=== PATIENT | female | born 1965 | race Caucasian/White ===

== ENCOUNTER 2021-05-30 08:00 | Outpatient (RCR) | payer BC, SELFPAY ==
--- NOTE | 2021-05-02 14:32 | PTOPEVAL ---
PHYSICAL THERAPY EVALUATION AND PLAN OF CARE Thank you for referring Selene Hernandez to [facility] [place] The patient is scheduled to be seen for therapy? 2x/week for 4 weeks. Please review, sign, date and return this plan of care MIKE. I agree with and certify that the following plan of care is medically necessary. Referring Physician Date Evaluation Outpatient Past Medical History Neurological History Hx Migraine Yes Cardiovascular History Hx Cardiac Disorders No Significant History Respiratory History Hx Respiratory Disorders No Significant History Gastrointestinal History Hx Gastroesophageal Reflux Disease Yes Genitourinary History Hx Genitourinary Disorders No Significant History Musculoskeletal History Hx Arthritis Yes: OA hillary knee Hx Back Pain Yes Hx Joint Replacement Yes: left knee Hx Spinal Surgery Yes: s/p PSF L4-5 02/03/19 Endocrine History Hx Diabetes Yes: diet controled Hx Hypothyroidism Yes HEENT History Hx HEENT Disorders No Significant History Integumentary History Hx Skin Disorders No Significant History Psychosocial History Hx Anxiety Yes Hx Bipolar Disorder Yes Hx Depression Yes Pain History Has Past Pain Affected Your Daily Life Yes: knees and back Diagnosis low back pain following spinal fusion Onset 5months ago Subjective Information Fusion was performed in Text:As Reported By Patient/ 2018 and everything was great Family for 2 years. Today symptomsa returning -she has bilateral hip pain and her left leg feels weak. This started about 5 months ago. No event occurred to cause the pain or the weakness. She did have two recent falls with the possibility that they were because of the weakness she has been feeling. No new numbness or tingling (both bottoms of her feet are numb from 2 years ago, but nothing new noted). The bilateral hip pain is there during the day but seems worse at night and the left is worse than the right. Self Report Pain Assessment Bilateral Hip(s) Reported Pain Level 4 Pain Description Dull Pain Frequency Chronic,Intermittent Lowest Pain Intensit
--- NOTE | 2021-05-30 08:33 | PTOPEVAL ---
PHYSICAL THERAPY DISCHARGE NOTE Thank you for referring Selene Hernandez to [facility] [place].? Please review, sign, date and return this plan of care MIKE. I agree with and certify that the following plan of care is medically necessary. Referring Physician Date Diagnosis low back pain following spinal fusion Onset 5months ago Subjective Information States that she still has the Query Text:As Reported By Patient/ pain in the hips and it is Family about the same as when we started. States that the back pain will come and go and right now there is a particular bout that starts out ok in the morning but by the evening it is almost unbearable. States that her exercises are going ok at home . Has been consistent with exercises at home except for the last two days because of the pain. She did do cat cow and child's pose and a heating pad to assist with pain the last two days. Self Report Pain Assessment Bilateral Hip(s) Reported Pain Level 6 Pain Description Dull Pain Frequency Chronic,Intermittent Greatest Pain Intensity 8 Other Pain Aggravating Factors cannot identify what makes it worse4 Pain Score Pain Score 6: Self Report Interventions Used Interventions Used By Clinicians Exercise Lower Extremity Muscle Strength Testing Hip Strength Bilateral Hip Flexion Strength 3+ Fair + Hip Extension Strength 3 Fair Hip Abduction Strength 3 Fair Knee Strength Bilateral Knee Flexion Strength 4- Good - Knee Extension Strength 4- Good - Ankle Strength Bilateral Ankle Dorsiflexion Strength 5 Normal Balance Assessment 5 Time Sit to Stand Time in Seconds 20.15 General Exercise General Exercises Exercise Type Active,Stabilization, Stretching Exercise Description reviewed HEP as issued per Query Text:Record Sets, Reps, chart copies; replaced supine Resistance, and Position marches for resisted standing marches discussed with Selene and educated on using home exercise program regularly and consistentl
== END 2021-05-31 08:46 | disposition home or self-care (01) ==
LOC: ANHPT 08:00
PROVIDERS: PCP Family Medicine
DX: M54.50 Low back pain, unspecified (principal); Z98.1 Arthrodesis status
CPT/HCPCS: 97110; 97140; 97162

== ENCOUNTER 2021-12-22 18:06 | Emergency (ER) | payer BC, SELFPAY ==
[2021-12-22 18:14] VITALS: BP 155/83; PULSE 79; RESP 16; TEMP 36.7; O2SAT 99
[2021-12-22 18:16] VITALS: BP 155/83; PULSE 79; RESP 16; TEMP 36.7; O2SAT 99
--- NOTE | 2021-12-22 18:33 | ED.URI ---
HPI - URI/Sore Throat General Chief Complaint: Upper Respiratory Infection Stated Complaint: sore throat Time Seen by Provider: 12/22/21 18:33 Source: patient, RN notes reviewed and old records reviewed Mode of arrival: ambulatory Limitations: no limitations History of Present Illness HPI Narrative: [id number] female who presents to [facility] with complaints of sore throat and ear pain which started yesterday morning when she awoke. Patient denies any known fevers chills or sweats,denies any cough or nasal congestion or drainage. Patient rates her throat pain as 7.10, has jevon Briseno for her pain. Patient has had COVID vaccinations and booster and also flu shot. 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 MD elicited complaint: sore throat and other (ear pain) Onset (ago): day(s) (yesterday morning) Pain scale (0-10): 7 Treatments prior to arrival: other (aleve) Related Data Home Medications Medication Instructions Recorded Confirmed acyclovir 400 mg tablet 400 mg PO DAILY 12/22/21 12/22/21 atomoxetine 40 mg capsule 40 mg PO DAILY 12/22/21 12/22/21 buspirone 10 mg tablet 10 mg PO DAILY 12/22/21 12/22/21 calcium carb-ergocalciferol (vit 1 tablet PO DAILY 12/22/21 12/22/21 D2) 600 mg calcium-200 unit tablet cyclobenzaprine 10 mg tablet 10 mg PO DAILY 12/22/21 12/22/21 lamotrigine 150 mg tablet 150 mg PO DAILY 12/22/21 12/22/21 levothyroxine 50 mcg tablet 50 mcg PO DAILY 12/22/21 12/22/21 melatonin 5 mg tablet 5 mg PO HS 12/22/21 12/22/21 meloxicam 15 mg tablet 15 mg PO DAILY 12/22/21 12/22/21 omeprazole 20 mg tablet,delayed 20 mg PO DAILY 12/22/21 12/22/21 release rizatriptan 10 mg tablet 10 mg PO DAILY 12/22/21 12/22/21 rosuvastatin 10 mg tablet 10 mg PO DAILY 12/22/21 12/22/21 trazodone 100 mg tablet 100 mg PO DAILY 12/22/21 12/22/21 Allergies Allergy/AdvReac Type Severity Reaction Status Date / Time paroxetine [From Paxil] AdvReac Mild Unknown Verified 12/22/21 18:29 Review of Systems Review of Systems: CONSTITUTIONAL: Denies fever, chills, or sweats. EYES: Denies visual changes, redness, or discharge. ENT: Denies rhinorrhea, congestion, positive forsore throat, bilateral otalgia. CARDIOVASCULAR: Denies chest pain, palpitations, or edema. RESPIRATORY: Denies cough or dyspnea. GASTROINTESTINAL: Denies abdominal pain, nausea, vomiting, or diarrhea. GENITOURINARY: Denies dysuria or hematuria. SKIN: Denies rash or itching. MUSCULOSKELETAL: chronic back pain, knee joints pain, or myalgia. NEUROLOGIC: Denies headache, numbness, or weakness. PSYCHIATRIC: positive for anxiety or depression. All systems reviewed & are unremarkable except as noted in HPI and below PMFSH Past Medical History Medical History (Updated 12/24/21 @ 10:24 by Yazmin Viramontes NP) Anxiety and depression Asthma Bipolar 1 disorder Diabetes Elevated cholesterol GERD (gastroesophageal reflux disease) Hypertension Hypothyroid Surgical History Surgical History (Updated 12/24/21 @ 10:28 by Yazmin Viramontes NP) History of endometrial ablation History of left knee replacement Hx of spinal surgery Family History Family History (Updated 12/24/21 @ 10:31 by Yazmin Viramontes NP) Father Hypertension Musculoskeletal problem Sibling Musculoskeletal problem Other Psychiatric problem Social History Social History (Updated 12/24/21 @ 10:27 by Yazmin Viramontes NP) Smoking status: Never smoker Substance use type: does not use Living arrangements: with family Gender identity (if verbalized by the patient): Female Comments At time of signature, agree with nursing past medical, surgical, social and family history. There is no relevant family history pertinent to the presenting complaint Exam Narrative: GENERAL: Well-appearing, well-nourished, obese and in no acute distress. HEAD: Normocephalic, atraumatic. EYES: PERRLA and EOMI. ENT: Nares clear, no rhinorrhea or epistaxis. Mucous membranes m
== END 2021-12-22 18:54 | disposition home or self-care (01) ==
PROVIDERS: Emergency Provider Registered Nurse
DX: J03.90 Acute tonsillitis, unspecified (principal); H92.03 Otalgia, bilateral; F31.9 Bipolar disorder, unspecified; E11.9 Type 2 diabetes mellitus without complications; K21.9 Gastro-esophageal reflux disease without esophagitis; E03.9 Hypothyroidism, unspecified; I10 Essential (primary) hypertension; Z96.652 Presence of left artificial knee joint
CPT/HCPCS: 87081; 99213; G0463

== ENCOUNTER 2022-10-10 13:15 | Outpatient (RCR) | payer BC, SELFPAY ==
--- NOTE | 2022-10-03 09:03 | PTOPEVAL1 ---
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, it is hard to do and have pain; when take them out, have to have helper go with them, she cannot lift at home, sometimes need help with lifting and taking things upstairs---due to legs weak; do not do any exercises for legs or back; have had PT in the past, not able to recall anything about it; Reported Pain Level Pain Score Self Report back pain Additional Pain Score Comments pain range in the past week 4-9 /10; tight, dull pain; legs feel weak and hurt after walking on incline and on stairs; hips sore and hurt- when lie down increase pain: lifting, activity, end of day, bending, when first get up in AM decrease pain: sit, rest, stretch back by leaning forward with sitting--nothing really helps much decreased sensation and feels funny from R and L mid nicolas to feet- constant Assessment PT Clinical Summary Viktoria has the diagnosis of back pain. She reports weakness of her legs, with decreased ability with home tasks, lifting and stairs. Recently had 1 fall due to loss of balance. Self assessment Oswestry score of 54% limitation in activity level. Her history includes lumbar fusion in 2019 and decreased sensation in both lower legs--mid nicolas to feet. With the evaluation: she has decreased R and L LE and trunk strength; 2 minute walking test distance of 425'; 5 reps sit/stand time of 29 seconds; with testing motions--increase back pain with standing trunk flexion, supine trunk rotation R/L and bridging. Skilled PT services are indicated for modalities to decrease pain; therapeutic exercises and activities to increase strength and mobility skills, wi
--- NOTE | 2022-10-11 13:21 | PTOPDC ---
Assessment and note entered by Renay Claudio, PT Evaluation Information Reported Pain Level Discharge--patient NOT present Assessment PT Clinical Summary Selene has received 2 PT sessions. She then called and canceled her therapy due to insurance issues. The goals were not assessed. Discharge per pt request. Plan of Care PT Services Indicated No
== END 2022-10-11 14:51 | disposition home or self-care (01) ==
LOC: ANHPT 13:15
PROVIDERS: PCP Physician Assistant; Visit Provider Physician Assistant
DX: Z98.1 Arthrodesis status (principal)
CPT/HCPCS: 97110; 97161

== ENCOUNTER 2023-06-08 09:25 | Emergency (ER) | payer BC, SELFPAY ==
--- NOTE | ~2023-06-08 | XR_ITS ---
XR finger 2nd RT min 2V 06/08/2023 09:44 INDICATION: Right second finger pain PROCEDURE: 3 views right second finger COMPARISON: No prior studies for comparison. FINDINGS: Fracture, dislocation or subluxation is not identified. There is polyarticular osteoarthrit is. There is mild soft tissue swelling overlying the distal phalanx. No foreign bodies are identifie d. IMPRESSION: 1: NO ACUTE BONE OR JOINT ABNORMALITY IDENTIFIED. Reviewed, dictated and finalized at location [facility]
--- NOTE | 2023-06-08 09:26 | ED.UPPEXIN ---
HPI - Extremity Injury (Upper) General Chief Complaint: Extremity Injury, Upper Stated Complaint: right finger injury Time Seen by Provider: 06/08/23 09:26 Source: patient Mode of arrival: ambulatory Limitations: no limitations History of Present Illness HPI narrative: Patient is a 58-year-old female who presents with right thumb pain after slamming in car door yesterday. Reports there is lot of pressure under thumb nail. Denies any numbness, tingling to thumb. Denies any open wounds. Related Data Home Medications Medication Instructions Recorded Confirmed acyclovir 400 mg tablet 400 mg PO DAILY 12/22/21 06/08/23 atomoxetine 40 mg capsule 40 mg PO DAILY 12/22/21 06/08/23 buspirone 10 mg tablet 10 mg PO DAILY 12/22/21 06/08/23 calcium carb-ergocalciferol (vit 1 tablet PO DAILY 12/22/21 06/08/23 D2) 600 mg calcium-200 unit tablet cyclobenzaprine 10 mg tablet 10 mg PO DAILY 12/22/21 06/08/23 lamotrigine 150 mg tablet 150 mg PO DAILY 12/22/21 06/08/23 levothyroxine 50 mcg tablet 50 mcg PO DAILY 12/22/21 06/08/23 melatonin 5 mg tablet 5 mg PO HS 12/22/21 06/08/23 meloxicam 15 mg tablet 15 mg PO DAILY 12/22/21 06/08/23 omeprazole 20 mg tablet,delayed 20 mg PO DAILY 12/22/21 06/08/23 release rizatriptan 10 mg tablet 10 mg PO DAILY 12/22/21 06/08/23 rosuvastatin 10 mg tablet 10 mg PO DAILY 12/22/21 06/08/23 trazodone 100 mg tablet 100 mg PO DAILY 12/22/21 06/08/23 hydroxyzine HCl 25 mg tablet 25 mg PO DAILY 06/08/23 06/08/23 topiramate 50 mg tablet 50 mg PO BID 06/08/23 06/08/23 Allergies Allergy/AdvReac Type Severity Reaction Status Date / Time paroxetine [From Paxil] AdvReac Mild Unknown Verified 06/08/23 09:36 Review of Systems Review of Systems: All systems reviewed & are unremarkable except as noted in HPI and below Constitutional: Constitutional: Denies body ache(s), Denies chills, Denies fatigue, Denies fever(s), Denies headache(s), Denies malaise and Denies weakness Eyes: Eyes: Denies blurry vision, Denies irritation and Denies loss of vision ENT: Denies otalgia, Denies headache(s), Denies nasal discharge, Denies sinus pain and Denies sore throat Cardiovascular: Cardiovascular: Denies chest pain, Denies irregular heart rhythm and Denies dyspnea Respiratory: Respiratory: Denies dyspnea Gastrointestinal: Gastrointestinal: Denies abdominal pain, Denies melena, Denies hematochezia, Denies diarrhea, Denies nausea and Denies vomiting Musculoskeletal: Musculoskeletal: Denies back pain, Denies myalgias and Reports arthralgias Integumentary/Breasts: Skin/Breast: Denies pruritus and Denies rash Neurologic: Denies headache(s), Denies loss of vision and Denies weakness Psychiatric: Psychiatric: Reports no additional psychiatric complaints Endocrine: Endocrine: Denies fatigue PMFSH Past Medical History Medical History Anxiety and depression Asthma Bipolar 1 disorder Diabetes Elevated cholesterol GERD (gastroesophageal reflux disease) Hypertension Hypothyroid Surgical History Surgical History History of endometrial ablation History of left knee replacement Hx of spinal surgery Family History Family History Father Hypertension Musculoskeletal problem Sibling Musculoskeletal problem Other Psychiatric problem Social History Social History Smoking status: Never smoker Substance use type: does not use Living arrangements: with family Gender identity (if verbalized by the patient): Female Comments At time of signature, agree with nursing past medical, surgical, social and family history. There is no relevant family history pertinent to the presenting complaint. Exam Const: General: cooperative, healthy appearing, comfortable, no acute distress and well nourished Nutr
[2023-06-08 09:36] VITALS: BP 137/84; PULSE 63; RESP 16; TEMP 36.3; O2SAT 98
[2023-06-08 09:38] VITALS: BP 137/84; PULSE 63; RESP 16; TEMP 36.3; O2SAT 98
== END 2023-06-08 10:11 | disposition home or self-care (01) ==
PROVIDERS: Emergency Provider Nurse Practitioner Family; PCP Physician Assistant
DX: S60.121A Contusion of right index finger with damage to nail, initial encounter (principal); X58.XXXA Exposure to other specified factors, initial encounter; E11.9 Type 2 diabetes mellitus without complications; E78.00 Pure hypercholesterolemia, unspecified; K21.9 Gastro-esophageal reflux disease without esophagitis; I10 Essential (primary) hypertension; E03.9 Hypothyroidism, unspecified; F41.9 Anxiety disorder, unspecified; F31.9 Bipolar disorder, unspecified; Z96.652 Presence of left artificial knee joint
CPT/HCPCS: 11740; 73140; 99213; G0463

== ENCOUNTER 2024-02-09 14:51 | Emergency (ER) | payer BC, SELFPAY ==
--- NOTE | 2024-02-09 14:55 | ED.URI ---
HPI - URI/Sore Throat General Chief Complaint: Upper Respiratory Infection Stated Complaint: sore throat Time Seen by Provider: 02/09/24 14:55 Source: patient Mode of arrival: ambulatory Limitations: no limitations History of Present Illness HPI Narrative: Patient is 4-year-old female who presents with sore throat, hoarseness, ear pressure that started yesterday. Patient has not taken anything for symptoms. 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 Patient took home COVID test today that was negative. Related Data Home Medications Medication Instructions Recorded Confirmed acyclovir 400 mg tablet 400 mg PO DAILY 12/22/21 06/08/23 atomoxetine 40 mg capsule 40 mg PO DAILY 12/22/21 06/08/23 buspirone 10 mg tablet 10 mg PO DAILY 12/22/21 06/08/23 calcium carb-ergocalciferol (vit 1 tablet PO DAILY 12/22/21 06/08/23 D2) 600 mg calcium-200 unit tablet cyclobenzaprine 10 mg tablet 10 mg PO DAILY 12/22/21 06/08/23 lamotrigine 150 mg tablet 150 mg PO DAILY 12/22/21 06/08/23 levothyroxine 50 mcg tablet 50 mcg PO DAILY 12/22/21 06/08/23 melatonin 5 mg tablet 5 mg PO HS 12/22/21 06/08/23 meloxicam 15 mg tablet 15 mg PO DAILY 12/22/21 06/08/23 omeprazole 20 mg tablet,delayed 20 mg PO DAILY 12/22/21 06/08/23 release rizatriptan 10 mg tablet 10 mg PO DAILY 12/22/21 06/08/23 rosuvastatin 10 mg tablet 10 mg PO DAILY 12/22/21 06/08/23 trazodone 100 mg tablet 100 mg PO DAILY 12/22/21 06/08/23 hydroxyzine HCl 25 mg tablet 25 mg PO DAILY 06/08/23 06/08/23 topiramate 50 mg tablet 50 mg PO BID 06/08/23 06/08/23 Allergies Allergy/AdvReac Type Severity Reaction Status Date / Time paroxetine [From Paxil] AdvReac Mild Unknown Verified 06/08/23 09:36 Review of Systems Review of Systems: All systems reviewed & are unremarkable except as noted in HPI and below Constitutional: Constitutional: Denies body ache(s), Denies chills, Denies fatigue, Denies fever(s), Denies headache(s), Denies malaise and Denies weakness Eyes: Eyes: Denies blurry vision, Denies itchy eyes and Denies loss of vision ENT: Reports otalgia, Denies headache(s), Reports nasal congestion, Denies sinus pain and Reports sore throat Cardiovascular: Cardiovascular: Denies chest pain, Denies irregular heart rhythm and Denies dyspnea Respiratory: Respiratory: Denies cough and Denies dyspnea Gastrointestinal: Gastrointestinal: Denies abdominal pain, Denies diarrhea, Denies nausea and Denies vomiting Musculoskeletal: Musculoskeletal: Denies back pain, Denies myalgias and Denies arthralgias Integumentary/Breasts: Skin/Breast: Denies pruritus and Denies rash Neurologic: Denies headache(s), Denies loss of vision and Denies weakness Psychiatric: Psychiatric: Reports no additional psychiatric complaints Endocrine: Endocrine: Denies fatigue Allergic/Immunologic: Allergic/Immunologic: Denies itchy eyes PMFSH Past Medical History Medical History Anxiety and depression Asthma Bipolar 1 disorder Diabetes Elevated cholesterol GERD (gastroesophageal reflux disease) Hypertension Hypothyroid Surgical History Surgical History History of endometrial ablation History of left knee replacement Hx of spinal surgery Family History Family History Father Hypertension Musculoskeletal problem Sibling Musculoskeletal problem Other Psychiatric problem Social History Social History Smoking status: Never smoker Substance use type: does not use Living arrangements: with family Gender identity (if verbalized by the patient): Female Comments At time of signature, agree with nursing past medical, surgical, social and family history. There is no relevant family history pertinent to the presenting complaint. Exam Const: General: cooperative, healthy appearing, comfortable, no acute distress and well nourished Nutritional Appearance: well nourished Orientation/consciousness: patient oriented x3 Limitations: no limitations HENMT: Head: normal to inspection, normocephalic and atraumatic Ears: hearing grossly normal bilaterally, external ears normal, TM's normal bilaterally, EAC's normal and no periauricular adenopathy Face/Nose/Sinus: Normal external nose present, Abnormal mucous membranes and turbinates present erythematous bilateral and diffuse, normal facial exam, sinuses nontender and face symmetric Face and sinus: normal facial exam, sinuses nontender and face symmetric Mouth: Yes Normal oral and palatal mucosa present, Yes lip normal, Yes tongue normal, Yes Normal salivary glands and ducts present, Yes oropharynx normal and Yes moist mucous membranes Teeth and gingiva: dentition normal Throat: posterior oropharynx normal, tonsils normal, uvula midline and postnasal drainage Eyes: General: appearance normal, both eyes and all related structures Alignment and Position: alignment normal and position normal Periorbital: periorbital findings normal Eyelids: eyelids normal Pupils: Equal, round and reactive pupils present Neck: Neck: normal visual inspection, full ROM, no lymphadenopathy and supple Chest: Chest palpation & inspection: normal inspection of the chest and normal palpation of entire chest wall Resp: Effort & Inspection: normal respiratory effort and able to speak in complete sentences Auscultation: clear to auscultation bilaterally, no crackles, no rales, no rhonchi and no wheezes Cardio: Rate: regular rate Rhythm: regular rhythm Heart sounds: S1 normal heart sound present and S2 normal heart sound present GI: Inspection: normal to inspection Skin: General skin exam: normal color and no rashes or lesions noted Neuro: General: patient oriented x3 and moves all extremities Cranial nerves: Yes Equal, round and reactive pupils present Speech: normal speech Gait exam (Neuro): Normal gait present Extrem: General: normal to inspection, full ROM and no edema Psych: Appearance: grossly normal and well kempt Mental Status: mental status grossly normal Speech and movement: Normal speech and movement present Affect: normal affect Attitude: cooperative Thought process: Normal thought process present Course Course Emergency Course: Patient is aware of diagnosis, understands and agrees to treatment plan. Anticipatory guidance given. Patient agrees to follow-up as directed and is aware of reasons to seek care at the emergency department. Portions of this record may have been created with voice recognition software Level of Care: Express Care Visit Vital Signs Vital signs: Vital Signs Temperature 36.2 C L 02/09/24 15:07 Pulse Rate 84 02/09/24 15:07 Respiratory Rate 16 02/09/24 15:07 Blood Pressure 131/81 02/09/24 15:07 Pulse Oximetry 97 02/09/24 15:07 Temperature 36.2 C L 02/09/24 15:07 Pulse Rate 84 02/09/24 15:07 Respiratory Rate 16 02/09/24 15:07 Blood Pressure 131/81 02/09/24 15:07 Pulse Oximetry 97 02/09/24 15:07 Reviewed MDM - URI/Sore Throat MDM Narrative Medical decision making narrative: Discharge instructions reviewed with patient, as well as provided in writing per nursing staff. The instructions also include specific and strict return/GO TO THE ER as well as f/u information. All questions have been answered, and the patient deny any further questions with discharge and discharge plan. Differential diagnosis considered: Castro virus, strep pharyngitis, allergic rhinitis, upper respiratory tract infection, sinusitis, rhinosinusitis, nasopharyngitis. viral pharyngitis, otitis media, otitis externa, otitis effusion, foreign body, cerumen impaction, viral syndrome, and influenza.? Exam findings show no acute concerns or changes; patient is non-toxic appearing and is in no distress.? Patient is appropriate for outpatient treatment and follow-up.? Medical Records Attestation: I reviewed the patient's medical records. Lab Data Attestation: I reviewed the patient's lab results. Labs: Lab Results 02/09/24 Range/Units 15:14 POC Grp A Strep Screen Negative (Negative) Discharge Plan Discharge Clinical Impression: Upper respiratory infection Qualifiers: URI type: unspecified viral URI Qualified Code(s): J06.9 - Acute upper respiratory infection, unspecified Patient Disposition: Home, Self-Care Condition: Stable Instructions: Upper Respiratory Infection (ED) Additional Instructions: Your rapid strep swab was negative today at [facility]. A throat culture will be sent to the laboratory for further testing. If the test is positive, you will receive a phone call within 48 hours and an appropriate antibiotic will be initiated at that time. Your symptoms are likely due to a viral illness, which is not treated with antibiotics. Viral symptoms can be present for up to a few weeks. -Alternate Tylenol and Motrin per package directions for fever or pain. -Antihistamine medication such as Benadryl/Zyrtec at night and Claritin/Jennifer during the day can help improve symptoms. -Use Flonase twice a day for 5 days then daily to help reduce the inflammation and dry up your sinuses. -You can also use Sudafed behind the pharmacy counter(12 or 24 hour). Be sure to drink plenty of water with these medications at least 8 ounces with every dose and it is important to drink 8 to 10 glasses of water per day. Water is a natural decongestant -Eat and drink things that are easy to swallow, like tea or soup, or popsicles. -Oral rinses such as: Salt water gargles and/or may use topical anesthetic (eg. Chloraseptic spray) or lozenges to relieve dryness or throat pain). -Frequent hand washing or hand roughener is one of the best ways to prevent spread of infection. -Using a vaporizer or humidifier at night will also help thin secretions and help with coughing up phlegm. -Follow up with primary care provider in 3-5 days if condition is not improving - For new or worsening symptoms go directly to the nearest ER Prescriptions: No Action hydroxyzine HCl 25 mg tablet 25 mg PO DAILY topiramate 50 mg tablet 50 mg PO BID mupirocin 2 % ointment 1 applic topical BID Qty: 15 0RF lamotrigine 150 mg tablet 150 mg PO DAILY meloxicam 15 mg tablet 15 mg PO DAILY acyclovir 400 mg tablet 400 mg PO DAILY trazodone 100 mg tablet 100 mg PO DAILY levothyroxine 50 mcg tablet 50 mcg PO DAILY buspirone 10 mg tablet 10 mg PO DAILY atomoxetine 40 mg capsule 40 mg PO DAILY rosuvastatin 10 mg tablet 10 mg PO DAILY cyclobenzaprine 10 mg tablet 10 mg PO DAILY rizatriptan 10 mg tablet 10 mg PO DAILY Calcium + Vitamin D 600 mg calcium- 200 unit Tablet 1 tablet PO DAILY omeprazole 20 mg Tablet,Delayed Release (Dr/Ec) 20 mg PO DAILY melatonin 5 mg Tablet 5 mg PO HS Follow-up/Referrals: PHYSICIAN NOT ON STAFF,NONSTAFF [Primary Care Provider] - Time of Disposition: 15:24
[2024-02-09 15:07] VITALS: BP 131/81; PULSE 84; RESP 16; TEMP 36.2; O2SAT 97
[2024-02-09 15:16] LABS: EDSTREPNEGPOS1 Negative (Negative)
== END 2024-02-09 15:28 | disposition home or self-care (01) ==
PROVIDERS: Emergency Provider Nurse Practitioner Family
DX: J06.9 Acute upper respiratory infection, unspecified (principal); E11.9 Type 2 diabetes mellitus without complications; I10 Essential (primary) hypertension; E78.00 Pure hypercholesterolemia, unspecified; K21.9 Gastro-esophageal reflux disease without esophagitis; E03.9 Hypothyroidism, unspecified; F41.9 Anxiety disorder, unspecified; F31.9 Bipolar disorder, unspecified; Z96.652 Presence of left artificial knee joint
CPT/HCPCS: 87081; 87880; 99213; G0463

== ENCOUNTER 2024-02-11 09:21 | Emergency (ER) | payer BC, SELFPAY ==
--- NOTE | ~2024-02-11 | XR_ITS ---
EXAMINATION: XR chest 2V DATE: 02/11/2024 09:39 INDICATION: Cough and shortness of breath. TECHNIQUE: Frontal and lateral views of the chest were obtained. COMPARISON: Chest 2 views 04/26/2018 FINDINGS: There is no pneumonia, pleural effusion, or pneumothorax. The heart size is normal. IMPRESSION: 1. No acute cardiopulmonary disease. Reviewed, dictated and finalized at location B.
--- NOTE | 2024-02-11 09:28 | ED.URI ---
HPI - URI/Sore Throat General Chief Complaint: Upper Respiratory Infection Stated Complaint: SOB/Sinus Time Seen by Provider: 02/11/24 09:30 Source: patient, RN notes reviewed and old records reviewed Mode of arrival: ambulatory Limitations: no limitations History of Present Illness HPI Narrative: 58-year-old female returns to the [facility], was evaluated 2 days ago. Patient diagnosed with an upper respiratory infection. Symptoms x3 days Patient states that she is concerned she might have pneumonia. Denies chest pain. Reports shortness of breath last night Onset (ago): day(s) (3) Related Data Home Medications Medication Instructions Recorded Confirmed acyclovir 400 mg tablet 400 mg PO DAILY 12/22/21 02/11/24 atomoxetine 40 mg capsule 40 mg PO DAILY 12/22/21 02/11/24 buspirone 10 mg tablet 10 mg PO DAILY 12/22/21 02/11/24 calcium carb-ergocalciferol (vit 1 tablet PO DAILY 12/22/21 02/11/24 D2) 600 mg calcium-200 unit tablet cyclobenzaprine 10 mg tablet 10 mg PO DAILY 12/22/21 02/11/24 lamotrigine 150 mg tablet 150 mg PO DAILY 12/22/21 02/11/24 levothyroxine 50 mcg tablet 50 mcg PO DAILY 12/22/21 02/11/24 melatonin 5 mg tablet 5 mg PO HS 12/22/21 02/11/24 meloxicam 15 mg tablet 15 mg PO DAILY 12/22/21 02/11/24 omeprazole 20 mg tablet,delayed 20 mg PO DAILY 12/22/21 02/11/24 release rizatriptan 10 mg tablet 10 mg PO DAILY 12/22/21 02/11/24 rosuvastatin 10 mg tablet 10 mg PO DAILY 12/22/21 02/11/24 trazodone 100 mg tablet 100 mg PO DAILY 12/22/21 02/11/24 hydroxyzine HCl 25 mg tablet 25 mg PO DAILY 06/08/23 02/11/24 topiramate 50 mg tablet 50 mg PO BID 06/08/23 02/11/24 lisdexamfetamine 70 mg capsule 70 mg PO QAM 02/11/24 02/11/24 Allergies Allergy/AdvReac Type Severity Reaction Status Date / Time paroxetine [From Paxil] AdvReac Mild Unknown Verified 10/30/24 09:25 Review of Systems Review of Systems: All systems reviewed & are unremarkable except as noted in HPI and below Constitutional: Constitutional: Reports no additional constitutional complaints ENT: Reports as per HPI Cardiovascular: Cardiovascular: Reports no additional cardiovascular complaints, Denies chest pain and Denies dyspnea Respiratory: Respiratory: Reports as per HPI, Reports chest congestion, Reports cough and Reports dyspnea Gastrointestinal: Gastrointestinal: Reports no additional gastrointestinal complaints, Denies abdominal pain, Denies nausea and Denies vomiting Musculoskeletal: Musculoskeletal: Reports no additional musculoskeletal complaints Integumentary/Breasts: Skin/Breast: Reports system reviewed and no additional complaints, except as docu PMFSH Past Medical History Medical History Anxiety and depression Asthma Bipolar 1 disorder Diabetes Elevated cholesterol GERD (gastroesophageal reflux disease) Hypertension Hypothyroid Surgical History Surgical History History of endometrial ablation History of left knee replacement Hx of spinal surgery Family History Family History Father Hypertension Musculoskeletal problem Sibling Musculoskeletal problem Other Psychiatric problem Social History Social History Smoking status: Never smoker Substance use type: does not use Living arrangements: with family Gender identity (if verbalized by the patient): Female Comments At the time of my signature, I reviewed and agree with the nursing past medical, surgical, social, and family history. There is no relevant family history pertinent to the patient complaint. Exam Const: General: cooperative, healthy appearing, comfortable, no acute distress, well developed, alert and well nourished Nutritional Appearance: well nourished Orientation/consciousness: patient oriented x3 Limitations: no limitations HENMT: Head: normal to inspection Ears: hearing grossly normal bilaterally, external ears normal, TM's normal bilaterally, EAC's normal, mastoids normal and no periauricular adenopathy Face/Nose/Sinus: Normal external nose present, normal facial exam and face symmetric Face and sinus: normal facial exam and face symmetric Mouth: Yes Normal oral and palatal mucosa present, Yes lip normal and Yes tongue normal Throat: uvula midline, postnasal drainage and no uvular edema Eyes: General: appearance normal, both eyes and all related structures Alignment and Position: alignment normal Periorbital: periorbital findings normal Neck: Neck: normal visual inspection, full ROM, no lymphadenopathy and no meningeal signs Chest: Chest palpation & inspection: normal inspection of the chest Resp: Effort & Inspection: normal respiratory effort and able to speak in complete sentences Auscultation: no crackles, no rales, no rhonchi, wheezes expiratory wheezes (end exp wheeze RLL) and diminished lung sounds Cardio: Rate: regular rate Skin: General skin exam: normal color and no rashes or lesions noted Lesions: no lesions Rashes: no rashes Wounds: no wounds Neuro: General: patient oriented x3, gait normal, tone normal, moves all extremities and no meningeal signs Cognition (Neuro): normal cognition Speech: normal speech Gait exam (Neuro): Normal gait present Extrem: General: normal to inspection, full ROM, capillary refill normal and normal gait Psych: Appearance: grossly normal and well kempt Mental Status: mental status grossly normal Speech and movement: Normal speech and movement present and Clear speech present Affect: normal affect Attitude: cooperative Course Course Level of Care: Express Care Visit Vital Signs Vital signs: Vital Signs Temperature 98.1 F 02/11/24 09:30 Pulse Rate 66 02/11/24 09:30 Respiratory Rate 20 02/11/24 09:30 Blood Pressure 164/84 H 02/11/24 09:30 Pulse Oximetry 96 02/11/24 09:30 Oxygen Delivery Room Air 02/11/24 09:30 Temperature 98.1 F 02/11/24 09:30 Pulse Rate 66 02/11/24 09:30 Respiratory Rate 20 02/11/24 09:30 Blood Pressure 164/84 H 02/11/24 09:30 Pulse Oximetry 96 02/11/24 09:30 Oxygen Delivery Room Air 02/11/24 09:30 Reviewed MDM - URI/Sore Throat MDM Narrative Medical decision making narrative: Patient sitting comfortably in exam room. Nontoxic, vitals stable. Patient in no acute distress Patient with 3 day history of URI symptoms Patient had concern for pneumonia, chest x-ray negative Patient appropriate for outpatient treatment with close follow-up Discharge instructions reviewed with patient, as well as provided in writing per nursing staff. The instructions also include specific and strict return/GO TO THE ER as well as f/u information. All questions have been answered, and the patient deny any further questions with discharge and discharge plan. Some parts of this dictation were generated by voice recognition software and may contain typographical and/or grammatical inaccuracies. Differential Diagnosis Differential diagnosis: Likely upper respiratory infection, otitis media, sinusitis, viral infection, bronchitis, influenza and pharyngitis Imaging Data Radiologist's impression: EXAMINATION: XR chest 2V DATE: 02/11/2024 09:39 INDICATION: Cough and shortness of breath. TECHNIQUE: Frontal and lateral views of the chest were obtained. COMPARISON: Chest 2 views 04/26/2018 FINDINGS: There is no pneumonia, pleural effusion, or pneumothorax. The heart size is normal. IMPRESSION: 1. No acute cardiopulmonary disease. Critical Care Time Critical Care Time Critical Care Time: No Discharge Plan Discharge Clinical Impression: Bronchitis Patient Disposition: Home, Self-Care Condition: Stable Instructions: Antibiotic Form, Acute Bronchitis (ED) Additional Instructions: Today your x-ray did not show signs of pneumonia. Today your blood pressure was 164/84, is recommended you follow-up with your primary care provider within 2 weeks to have this rechecked Your symptoms are likely due to a viral illness, which is not treated with antibiotics. Viral symptoms typically last 7-10 days, the cough can linger for several weeks. -Alternate Tylenol and Motrin per package directions for fever or pain. -Antihistamine medication such as Benadryl at night and Zyrtec/Claritin/Jennifer during the day can help improve symptoms. -doing daily nasal irrigations can help relieve pressure your sinuses. Things like a Neti pot -Use Flonase twice a day for 5 days then daily to help reduce the inflammation and dry up your sinuses. -You can also use Mucinex. Be sure to drink plenty of water with this medication at least 8 ounces with every dose and it is important to drink 8 to 10 glasses of water per day. Water is a natural decongestant -Eat and drink things that are easy to swallow, like tea or soup, or popsicles. -Oral rinses such as: Salt water gargles and/or may use topical anesthetic (eg. Chloraseptic spray) or lozenges to relieve dryness or throat pain). -Frequent hand washing or hand floor scrubber is one of the best ways to prevent spread of infection. -Using a vaporizer or humidifier at night will also help thin secretions and help with coughing up phlegm. -Follow up with primary care provider in 7 days if condition is not improving - For new or worsening symptoms go directly to the nearest ER Patient Language: Mohawk Prescriptions: New (DME) Aerochamber MV Spacer See Rx Instructions .Route Qty: 1 0RF Rx Instructions: As directed albuterol sulfate 90 mcg/actuation HFA aerosol inhaler 2 puff inhalation QID PRN (Reason: shortness of breath or wheezing) Qty: 6.7 0RF No Action hydroxyzine HCl 25 mg tablet 25 mg PO DAILY topiramate 50 mg tablet 50 mg PO BID mupirocin 2 % ointment 1 applic topical BID Qty: 15 0RF lisdexamfetamine 70 mg capsule 70 mg PO QAM lamotrigine 150 mg tablet 150 mg PO DAILY meloxicam 15 mg tablet 15 mg PO DAILY acyclovir 400 mg tablet 400 mg PO DAILY trazodone 100 mg tablet 100 mg PO DAILY levothyroxine 50 mcg tablet 50 mcg PO DAILY buspirone 10 mg tablet 10 mg PO DAILY atomoxetine 40 mg capsule 40 mg PO DAILY rosuvastatin 10 mg tablet 10 mg PO DAILY cyclobenzaprine 10 mg tablet 10 mg PO DAILY rizatriptan 10 mg tablet 10 mg PO DAILY Calcium + Vitamin D 600 mg calcium- 200 unit Tablet 1 tablet PO DAILY omeprazole 20 mg Tablet,Delayed Release (Dr/Ec) 20 mg PO DAILY melatonin 5 mg Tablet 5 mg PO HS Follow-up/Referrals: Parent,CARINA Miguel [Primary Care Provider] - 2 Weeks [facility] Blood pressure checked your 164/84) Stand Alone Forms: Work/School Release IP Time of Disposition: 09:59
[2024-02-11 09:30] VITALS: BP 164/84; PULSE 66; RESP 20; TEMP 36.7; O2SAT 96
== END 2024-02-11 10:05 | disposition home or self-care (01) ==
PROVIDERS: Emergency Provider Nurse Practitioner; PCP Physician Assistant
DX: J40 Bronchitis, not specified as acute or chronic (principal); E11.9 Type 2 diabetes mellitus without complications; E78.00 Pure hypercholesterolemia, unspecified; K21.9 Gastro-esophageal reflux disease without esophagitis; I10 Essential (primary) hypertension; E03.9 Hypothyroidism, unspecified; J45.909 Unspecified asthma, uncomplicated; F41.9 Anxiety disorder, unspecified; F31.9 Bipolar disorder, unspecified; Z96.652 Presence of left artificial knee joint
CPT/HCPCS: 71046; 99213; G0463